=== PATIENT | male | born 1960 | race African-American/Black ===

== ENCOUNTER 2019-05-29 12:03 | Inpatient (IN) | payer OTHER ==
[2019-05-29 12:14] VITALS: BMI 23.5
[2019-05-29] MEDS ORDERED: SODIUM CHLORIDE 1,000 ML IV STA (14:32)
--- NOTE | 2019-05-29 14:42 | PDOC ---
Attending Attestation - Resident Resident Name: Deniz Mulligan - ED Attending Attestation I have performed the following: I have examined & evaluated the patient, The case was reviewed & discussed with the resident, I agree w/resident's findings & plan, Exceptions are as noted - HPI HPI: 58 yo M history ESRD (//), L AVF, HTN, CAD presents from dialysis for syncopal event during dialysis. He received approximately 10 min of dialysis. +Generalized weakness. +Chronic SOB, no recent change. Denies fever, chills, cp, cough. - Physicial Exam PE: GENERAL: Awake, alert, and fully oriented, in no acute distress HEAD: No signs of trauma EYES: PERRLA, EOMI, sclera anicteric, conjunctiva clear ENT: Auricles normal inspection, hearing grossly normal, nares patent, oropharynx clear without exudates. Moist mucosa NECK: Normal ROM, supple, no lymphadenopathy, JVD, or masses LUNGS: Breath sounds equal, clear to auscultation bilaterally. No wheezes, and no crackles HEART: Regular rate and rhythm, normal S1 and S2, no murmurs, rubs or gallops ABDOMEN: Soft, nontender, normoactive bowel sounds. No guarding, no rebound. No masses EXTREMITIES: L AVF with +thrill. Normal range of motion, no edema. No clubbing or cyanosis. No cords, erythema, or tenderness NEUROLOGICAL: Cranial nerves II through XII grossly intact. Normal speech. Motor and sensation intact SKIN: Warm, dry, normal turgor, no rashes or lesions noted. - Medical Decision Making 05/29/19 15:42 Labs d/w Dr. Torres. K is 6.1. Recommended a dose of Lokelma for now, will dialyze later today. Plan is for admission for syncope. Discharge - Discharge Information Problems reviewed: Yes Clinical Impression/Diagnosis: Syncope Qualifiers: Syncope type: unspecified Qualified Code(s): R55 - Syncope and collapse Condition: Stable - Follow up/Referral - Patient Discharge Instructions - Post Discharge Activity
--- NOTE | 2019-05-29 14:48 | PDOC ---
History of Present Illness - General Chief Complaint: Syncope/Near Syncope Stated Complaint: SYNCOPE/NEAR SYNCOPE Time Seen by Provider: 05/29/19 14:31 History Source: Patient Exam Limitations: No Limitations - History of Present Illness Initial Comments: Ash Anthony is a 58 yo m w a hx of ESRD (//) L AVF, HTN, and CAD who presents to the [facility] er from the dialysis center after a syncopal episode this morning midway throught dialysis. The dialysis session was not completed and was stopped short because the patient syncopised for around 3 to 4 minutes per dialysis staff. Patient endorses generalized fatigue. - Patient states he has been short of breath since January with no recent acute changes. The patient denies any prodromal symptoms, denies postictal confusion, denies experiencing any chest pain, nausea, or lightheadedness prior to the syncopal episode. Denies fevers, cough, sore throat, recent travel, anosmia, dysgeusia, headache, or blurry vision. PCP: Eleonora alatorre Renal: Margaret Lay (Brian avila) PSH: R nephrectomy, L AVF surgery Allergies: NKA, NKDA Social Hx:Former smoker smoked 1 pack per week for 15 years. Denies alcohol or other substance abuse. Past History - Past Medical History Allergies/Adverse Reactions: Allergies Allergy/AdvReac Type Severity Reaction Status Date / Time No Known Allergies Allergy Verified 05/29/19 12:15 Home Medications: Ambulatory Orders Aspirin 81 mg PO DAILY 05/29/19 Cholecalciferol (Vitamin D3) [Vitamin D3] 5,000 unit PO DAILY 05/29/19 Insulin (Levemir) [Levemir Vial] 20 unit SQ HS 05/29/19 Insulin Sliding Scale [Novolog Vial Sliding Scale -] 8 units SCJ TID 05/29/19 Iron,Carbonyl/Ascorbic Acid [Iron 100-Vitamin C Tablet] 1 tablet PO DAILY 05/29/19 Magnesium Oxide 400 mg PO DAILY 05/29/19 Metoprolol Succinate 50 mg PO DAILY 05/29/19 Multivitamin [Multiple Vitamins] 1 each PO DAILY 05/29/19 Nifedipine [Procardia Xl] 30 mg PO DAILY 05/29/19 Pantoprazole Sodium [Protonix] 40 mg PO DAILY 05/29/19 Prednisone 5 mg PO DAILY 05/29/19 Rosuvastatin [Crestor -] 20 mg PO HS 05/29/19 Tacrolimus 1 mg PO DAILY 05/29/19 COPD: No Diabetes: Yes Dialysis: Yes () HTN: Yes Hypercholesterolemia: Yes - Psycho Social/Smoking Cessation Hx Smoking History: Never smoked Review of Systems - Review of Systems Able to Perform ROS?: Yes Comments:: CONSTITUTIONAL: Present: Fatigue Absent: fever, no chills EYES: Absent: visual changes ENT: Absent: ear pain, no sore throat CARDIOVASCULAR: Present: Syncope Absent: chest pain, no palpitations RESPIRATORY: Present: SOB Absent: cough GI: Absent: abdominal pain, no nausea, no vomiting, no constipation, no diarrhea GENITOURINARY: Absent: dysuria, no frequency, no hematuria MUSKULOSKELETAL: Absent: back pain, no arthralgia, no myalgia SKIN: Absent: rash NEURO: Absent: headache *Physical Exam - Vital Signs Last Vital Signs Temp Pulse Resp BP Pulse Ox 98.1 F 94 H 18 143/80 100 05/29/19 12:07 05/29/19 12:07 05/29/19 12:07 05/29/19 12:07 05/29/19 12:07 - Physical Exam GENERAL: Well-appearing, well-nourished. No apparent distress. HEENT: Normocephalic, atraumatic. PERRL, EOM intact. CARDIOVASCULAR: Regular rate and rhythm. PULMONARY: No evidence of respiratory distress. Lungs clear to auscultation bilaterally. No wheezing, rales or rhonchi. ABDOMEN: Soft, non-distended, non-tender. EXTREMITIES: Normal ROM in all four extremities. L AVF. No gross deformities. SKIN: Warm, dry. No rash NEUROLOGICAL: No focal neurological deficits. ED Treatment Course - LABORATORY CBC & Chemistry Diagram: 05/30/19 06:38 05/30/19 06:38 - RADIOLOGY Radiology Studies Ordered: Category Date Time Status CHEST X-RAY PORTABLE* [RAD] Stat Radiology 05/29/19 14:32 Ordered Medical Decision Making - Medical Decision Making Ash Anthony is a 58 yo m w a hx of ESRD () L AVF, HTN, and CAD who presents to the [facility] er from the dialysis center after a syncopal episode this morning midway throught dialysis. The dialysis session was not completed and was stopped short because the patient syncopised for around 3 to 4 minutes per dialysis staff. Patient endorses generalized fatigue. - Patient states he has been short of breath since January with no recent acute changes. The patient denies any prodromal symptoms, denies postictal confusion, denies experiencing any chest pain, nausea, or lightheadedness prior to the syncopal episode. Denies fevers, cough, sore throat, recent travel, anosmia, dysgeusia, headache, or blurry vision. Vital Signs Temp Pulse Resp BP Pulse Ox 98.1 F 94 H 18 143/80 100 05/29/19 12:07 05/29/19 12:07 05/29/19 12:07 05/29/19 12:05/29/19 12:07 DDx IBNLT: Dehydration, electrolyte/metabolic disturbance, anemia, ACS, arrythmia Plan: EKG, Labs, CXR, Tele obs EKG: NS rate of 87, narrow complexes, normal axis, no hypertrophy, no ST elevations or depressions, no U waves, QTc 457, MO 154, no abnormal TWI's, no Q waves, Per ECG interpretation anterior infarc age undetermined, no hyperacute T waves. Renal Consult: Dr. Torres is covering for Dr. Robles - says the patient will be dialysed in two hours Disposition: Tele Obs Discharge - Discharge Information Problems reviewed: Yes Clinical Impression/Diagnosis: Syncope Qualifiers: Syncope type: unspecified Qualified Code(s): R55 - Syncope and collapse Condition: Stable - Admission Yes - Follow up/Referral - Patient Discharge Instructions - Post Discharge Activity
[2019-05-29 14:50] LABS: EOS % 13.2 % (0-4.5); HEMATOCRIT 26.4 % (35.4-49); HEMOGLOBIN 8.2 GM/dL (11.7-16.9); LYMPH % 6.6 % (8-40); MCH 23.3 pg (25.7-33.7); MEAN CELL VOLUME 75.2 fl (80-96); MONO % 8.3 % (3.8-10.2); NEUT % 70.9 % (42.8-82.8); PLATELET COUNT 565 K/MM3 (134-434); RBC 3.51 M/mm3 (4.00-5.60); RDW 19.2 % (11.9-15.9); WHITE BLOOD COUNT 11.8 K/mm3 (4.0-10.0)
[2019-05-29 15:28] LABS: ALBUMIN 1.9 g/dl (3.4-5.0); ALK PHOS 110 U/L (45-117); ANION GAP 8 MMOL/L (8-16); BILIRUBIN,TOTAL 0.3 mg/dL (0.2-1); BLOOD UREA NITROGEN 36.4 mg/dL (7-18); CALCIUM 8.7 mg/dL (8.5-10.1); CHLORIDE 98 mmol/L (98-107); CO2 28 mmol/L (21-32); GLUCOSE,RANDOM 182 mg/dL (74-106); MAGNESIUM 2.2 mg/dL (1.8-2.4); SGOT/AST 20 U/L (15-37); SGPT/ALT 12 U/L (13-61); SODIUM 134 mmol/L (136-145); TOT PROT 7.4 g/dl (6.4-8.2)
[2019-05-29 15:34] LABS: CREATININE 7.6 mg/dL (0.55-1.3); POTASSIUM 6.1 mmol/L (3.5-5.1)
[2019-05-29] MEDS ORDERED: SODIUM ZIRCONIUM CYCLOSILICATE (LOKELMA) 5 GM PACKET PO ONE (15:41)
--- NOTE | 2019-05-29 16:06 | CON.NEP ---
Consult Consult Specialty:: Nephrology Referred by:: ED Reason for Consultation:: ESRD on HD - History of Present Illness Chief Complaint: Syncope History of Present Illness: 58 year old gentleman with history of ESRD on HD, PCKD, Hypertension, DM presented from HD unit with syncope after starting dialysis. Seen in the ED. Denies any acute complaints. No CP, SOB, Abd pain, fever, chills, N/V/D. Does not make urine. - History Source History Provided By: Patient Limitations to Obtaining History: No Limitations - Past Medical History Cardio/Vascular: Yes: HTN Renal/: Yes: Renal Failure, Hemodialysis, Other (PCKD) Endocrine: Yes: Diabetes Mellitus - Smoking History Smoking history: Never smoked Home Medications - Allergies Allergies/Adverse Reactions: Allergies Allergy/AdvReac Type Severity Reaction Status Date / Time No Known Allergies Allergy Verified 05/29/19 12:15 Family Medical History Family History: Unremarkable Review of Systems - Review of Systems Constitutional: reports: No Symptoms Eyes: reports: No Symptoms HENT: reports: No Symptoms, Ocular Prosthesis Cardiovascular: reports: No Symptoms Respiratory: reports: No Symptoms Gastrointestinal: reports: No Symptoms Musculoskeletal: reports: No Symptoms Neurological: reports: No Symptoms Nephrology Consult - Height Height: 5 ft 7 in - Weight Weight: 68.039 kg - BMI Body Mass Index (BMI): 23.5 - Lab Results CBC,BMP: CBC, BMP 05/29/19 14:28 05/29/19 14:28 Anion Gap: Anion Gap Anion Gap 8 MMOL/L (8-16) 05/29/19 14:28 - Imaging EKG: Other (discussed with ED) - Physical Examination Vital Signs: Vital Signs Temperature 98.1 F 05/29/19 12:07 Pulse Rate 94 H 05/29/19 12:07 Respiratory Rate 18 05/29/19 12:07 Blood Pressure 143/80 05/29/19 12:07 O2 Sat by Pulse Oximetry (%) 100 05/29/19 12:07 Constitutional: Yes: Well Nourished, No Distress Eyes: Yes: Conjunctiva Clear HENT: Yes: Atraumatic Neck: Yes: Supple, Trachea Midline Cardiovascular: Yes: Regular Rate and Rhythm Respiratory: Yes: Regular, CTA Bilaterally Gastrointestinal: Yes: Normal Bowel Sounds Extremities: No: Cool, Cyanosis Edema: No Neurological: Yes: Alert, Oriented Problem List - Problems (1) ESRD (end stage renal disease) on dialysis Code(s): N18.6 - END STAGE RENAL DISEASE; Z99.2 - DEPENDENCE ON RENAL DIALYSIS (2) Polycystic kidney disease Code(s): Q61.3 - POLYCYSTIC KIDNEY, UNSPECIFIED (3) Hypertension Code(s): I10 - ESSENTIAL (PRIMARY) HYPERTENSION (4) Syncope Code(s): R55 - SYNCOPE AND COLLAPSE (5) Diabetes Code(s): E11.9 - TYPE 2 DIABETES MELLITUS WITHOUT COMPLICATIONS Assessment/Plan 58 year old gentleman with history of ESRD on HD, PCKD, Hypertension, DM presented from HD unit with syncope after starting dialysis. 1. Syncope 2. ESRD on HD 3. Hyperkalemia 4. Hypertension 5. PCKD 6. Anemia Tele work up as per primary team for HD today as inpatient as K is 6.1 Renal diet, 1.2L fluid restriction WIll give RUBY with HD for anemia, no acute need for transfusion check iron studies Thank you Tito Torres DO
--- NOTE | 2019-05-29 16:31 | HP ---
CHIEF COMPLAINT: PCP: Eleonora Yeboah ([facility]) HISTORY OF PRESENT ILLNESS: Pt is a 58 yo M with PMHx of ESRD TThSa, HTN, HLD, DM, PKD, prior kidney transplant presenting from dialysis center after syncopizing 10-15mins into the session. Pt reports feeling dizzy prior to syncopal episode, unable to give further detai ls but per chart lasting 3-4 mins. No chest pain, no SOB prior, no aura, no seizure-like activity. Pt recalls having similar experience in past x1 but could not say when. He started having dialysis in , and got kidney transplant 4 years ago, still on low dose of immunosuppressive medications. Pt last took his medications yesterday, pharmacy in [place] by mail script but pt able to assess list on line. Pt was noted to be hyperkalemic to 6.1 in ED, seen by renal,, prabhakar islas, for dialysis tonight. Recommended for tele admit and syncopal work up. ER course was notable for: (1) K-6.1, WBC-11.8, h/h-8.2/26.4 (2) EKG-vent rate 8.7, regular, QTC- 457, nl intervals, Qwaves v1-v3 (3) Recent Travel: PAST MEDICAL HISTORY: As above PAST SURGICAL HISTORY: Multiple- prior kidney transplant, AVfistula FH: Of kidney disease Social History: Smoking:Quit over 4 years smoked 2cigs/day Alcohol:Denies Drugs: Denies Allergies No Known Allergies Allergy (Verified 05/29/19 12:15) REVIEW OF SYSTEMS Except as in HPI PHYSICAL EXAMINATION Vital Signs - 24 hr 05/29/19 12:07 Temperature 98.1 F Pulse Rate 94 H Respiratory 18 Rate Blood Pressure 143/80 O2 Sat by Pulse 100 Oximetry (%) GENERAL: Awake, alert, and fully oriented, in no acute distress. HEAD: Normal with no signs of trauma. EYES: Pupils equal, round and reactive to light, extraocular movements intact, sclera anicteric, conjunctiva clear. EARS, NOSE, THROAT: Facemask on LUNGS: B/l crackles posteriorly past midlungs. No accessory muscle use. HEART: Regular rate and rhythm, normal S1 and S2 without murmur ABDOMEN: Soft, nontender, not distended, normoactive bowel sounds, no guarding, no rebound, no masses. MUSCULOSKELETAL: Normal range of motion at all joints. No bony deformities or tenderness. No CVA tenderness. UPPER EXTREMITIES: AVF LOWER EXTREMITIES: 2+ pulses, warm, well-perfused. No calf tenderness. No peripheral edema. NEUROLOGICAL: Cranial nerves II-XII intact. Normal speech. Gait not observed, no facial asymmetry, moves all extremities, 5/5 strength CBC, BMP 05/29/19 14:28 05/29/19 14:28 Laboratory Results - last 24 hr 05/29/19 05/29/19 14:28 14:28 WBC 11.8 H RBC 3.51 L Hgb 8.2 L Hct 26.4 L MCV 75.2 L MCH 23.3 L MCHC 31.0 L RDW 19.2 H Plt Count 565 H MPV 7.0 L Absolute Neuts (auto) 8.4 H Neutrophils % 70.9 Lymphocytes % 6.6 L Monocytes % 8.3 Eosinophils % 13.2 H Basophils % 1.0 Nucleated RBC % 0 Sodium 134 L Potassium 6.1 H* Chloride 98 Carbon Dioxide 28 Anion Gap 8 BUN 36.4 H Creatinine 7.6 H* Est GFR (CKD-EPI)AfAm 8.36 Est GFR (CKD-EPI)NonAf 7.21 Random Glucose 182 H Calcium 8.7 Magnesium 2.2 Total Bilirubin 0.3 AST 20 ALT 12 L Alkaline Phosphatase 110 Creatine Kinase 45 Troponin I < 0.02 Total Protein 7.4 Albumin 1.9 L Ambulatory Orders Aspirin 81 mg PO DAILY 05/29/19 Cholecalciferol (Vitamin D3) [Vitamin D3] 5,000 unit PO DAILY 05/29/19 Insulin (Levemir) [Levemir Vial] 20 unit SQ HS 05/29/19 Insulin Sliding Scale [Novolog Vial Sliding Scale -] 8 units SCJ TID 05/29/19 Iron,Carbonyl/Ascorbic Acid [Iron 100-Vitamin C Tablet] 1 tablet PO DAILY 05/29/19 Magnesium Oxide 400 mg PO DAILY 05/29/19 Metoprolol Succinate 50 mg PO DAILY 05/29/19 Multivitamin [Multiple Vitamins] 1 each PO DAILY 05/29/19 Nifedipine [Procardia Xl] 30 mg PO DAILY 05/29/19 Pantoprazole Sodium [Protonix] 40 mg PO DAILY 05/29/19 Prednisone 5 mg PO DAILY 05/29/19 Rosuvastatin [Crestor -] 20 mg PO HS 05/29/19 Tacrolimus 1 mg PO DAILY 05/29/19 Current Medications Aspirin (Asa -) 81 mg PO DAILY [facility] Cholecalciferol (Vitamin D3 -) 5,000 unit PO DAILY [facility] Heparin Sodium (Porcine) (Heparin -) 5,000 unit SQ BID [facility] Sodium Chloride (Normal Saline -) 250 mls @ 3,000 mls/hr IV PRN PRN PRN Reason: Hypotension during Dialysis Stop: 05/30/19 20:22 Insulin Detemir (Levemir Vial) 20 units SQ HS [facility] Magnesium Oxide (Mag-Ox -) 400 mg PO DAILY [facility] Multivitamins/Minerals/Vitamin C (Tab-A-Vit -) 1 tab PO DAILY [facility] Non-Formulary Medication (Iron,Carbonyl/Ascorbic Acid [Iron 100-Vitamin C Tablet]) 1 tablet PO DAILY [facility] Pantoprazole Sodium (Protonix -) 40 mg PO DAILY [facility] Prednisone (Deltasone -) 5 mg PO DAILY [facility] Rosuvastatin Calcium (Crestor -) 20 mg PO HS [facility] Tacrolimus (Prograf) 1 mg PO DAILY [facility] ASSESSMENT/PLAN: Pt is a 58 yo M with PMHx of ESRD TThSa, HTN, HLD, DM, PKD, prior kidney transplant presenting from dialysis center after syncopizing 10-15mins into the session. #Syncope During dialysis, possible due to hypotension R/O cardiogenic Pt received IVF in ED Pt with hyperkelemia, Q waves on EKG, no prior EKG to compare orthostatic BP Will do ECHO Carotid US Tele monitoring Physical therapy #Hyperkalemia In setting of incomplet/missed dialysis EKG without evidence of hyperkalemia Lokelma given For dialysis today Seen by renal #ESRD TThSa S/p IVF Interrrupted session today due to syncope, will still be dialyzed today per renal #Anemia Iron studies Pt to get EPO, no need for transfusion at this time Pt on home iron tablets per medrec #HTN Pt on home nifedipine and metoprolol Will hold for now #HLD Crestor 20mg at home per pt May resume #DM Pt reports using levemir 20u at night short acting insulin 8u tid BGM ACHS #PKD Family hx of kidney disease Now s/p kidney transplant 4years ago Started dialysis Still on immunosuppressive medications- prednisone 5mg, Tacrolimus 1mg #FEN No standing fluids For dialysis Renal diet #PPx Cont protonix #Heparin sc 5000 bid #Dispo Tele for hypokalemia monitoring Visit type - Emergency Visit Emergency Visit: Yes ED Registration Date: 05/29/19 Care time: The patient presented to the Emergency Department on the above date and was hospitalized for further evaluation of their emergent condition. - New Patient This patient is new to me today: Yes Date on this admission: 05/29/19 - Critical Care Critical Care patient: No ATTENDING PHYSICIAN STATEMENT I saw and evaluated the patient. I reviewed the resident's note and discussed the case with the resident. I agree with the resident's findings and plan as documented. SUBJECTIVE: OBJECTIVE: ASSESSMENT AND PLAN:
[2019-05-29] MEDS ORDERED: predniSONE 5 MG TABLET (UD) PO SCH (18:15)
--- NOTE | 2019-05-29 19:09 | PN ---
Teaching Attending Note Name of Resident: Maki Jaquez ATTENDING PHYSICIAN STATEMENT I saw and evaluated the patient. I reviewed the resident's note and discussed the case with the resident. I agree with the resident's findings and plan as documented. SUBJECTIVE: reports passing out during HD. [place] lightheaded prior to syncope but denies CP/palpitations/Cough/SOB/fevers/chills. OBJECTIVE: Afebrile, Hemodynamically Stable Last Vital Signs Temp Pulse Resp BP Pulse Ox 98.1 F 94 H 18 143/80 100 05/29/19 12:07 05/29/19 12:07 05/29/19 12:07 05/29/19 12:07 05/29/19 12:07 HEENT - Atraumatic, Normocephalic. Heart - S1, S2, RRR Lungs - clear to auscultation Abdomen - Transplant kidney in vivo. Abdomen Non-tender. Extremities - no edema, no calf tenderness Neuro - AAO x 3. Tone/Power normal all extremities. Laboratory Results - last 24 hr 05/29/19 05/29/19 05/29/19 14:28 14:28 17:50 WBC 11.8 H RBC 3.51 L Hgb 8.2 L Hct 26.4 L MCV 75.2 L MCH 23.3 L MCHC 31.0 L RDW 19.2 H Plt Count 565 H MPV 7.0 L Absolute Neuts (auto) 8.4 H Neutrophils % 70.9 Lymphocytes % 6.6 L Monocytes % 8.3 Eosinophils % 13.2 H Basophils % 1.0 Nucleated RBC % 0 Sodium 134 L Potassium 6.1 H* Chloride 98 Carbon Dioxide 28 Anion Gap 8 BUN 36.4 H Creatinine 7.6 H* Est GFR (CKD-EPI)AfAm 8.36 Est GFR (CKD-EPI)NonAf 7.21 Random Glucose 182 H Calcium 8.7 Magnesium 2.2 Total Bilirubin 0.3 AST 20 ALT 12 L Alkaline Phosphatase 110 Creatine Kinase 45 41 Troponin I < 0.02 < 0.02 Total Protein 7.4 Albumin 1.9 L Current Medications Generic Name Dose Route Start Last Admin Trade Name Freq PRN Reason Stop Dose Admin Aspirin 81 mg 05/29/19 18:15 Asa - PO DAILY [facility] Cholecalciferol 5,000 unit 05/30/19 10:00 Vitamin D3 - PO DAILY [facility] Epoetin Nii 20,000 unit 05/29/19 15:58 Procrit - IVPUSH 05/29/19 15:59 ONCE ONE Sodium Chloride 250 mls @ 3,000 mls/hr 05/29/19 15:58 Normal Saline - IV 05/30/19 15:58 PRN PRN Hypotension during Dialysis Insulin Detemir 20 units 05/29/19 22:00 Levemir Vial SQ HS [facility] Magnesium Oxide 400 mg 05/30/19 10:00 Mag-Ox - PO DAILY [facility] Multivitamins/Minerals/Vitamin C 1 tab 05/30/19 10:00 Tab-A-Vit - PO DAILY [facility] Non-Formulary Medication 1 tablet 05/30/19 10:00 Iron,Carbonyl/Ascorbic Acid [Iron 100-Vitamin C Tablet] PO DAILY [facility] Pantoprazole Sodium 40 mg 05/30/19 10:00 Protonix - PO DAILY [facility] Prednisone 5 mg 05/29/19 18:15 Deltasone - PO DAILY [facility] Rosuvastatin Calcium 20 mg 05/29/19 22:00 Crestor - PO HS [facility] Tacrolimus 1 mg 05/29/19 18:15 Prograf PO DAILY [facility] Home Medications Medication Instructions Recorded Aspirin 81 mg PO DAILY 05/29/19 Cholecalciferol (Vitamin D3) 5,000 unit PO DAILY 05/29/19 [Vitamin D3] Insulin (Levemir) [Levemir Vial] 20 unit SQ HS 05/29/19 Insulin Sliding Scale [Novolog 8 units SCJ TID 05/29/19 Vial Sliding Scale -] Iron,Carbonyl/Ascorbic Acid [Iron 1 tablet PO DAILY 05/29/19 100-Vitamin C Tablet] Magnesium Oxide 400 mg PO DAILY 05/29/19 Metoprolol Succinate 50 mg PO DAILY 05/29/19 Multivitamin [Multiple Vitamins] 1 each PO DAILY 05/29/19 Nifedipine [Procardia Xl] 30 mg PO DAILY 05/29/19 Pantoprazole Sodium [Protonix] 40 mg PO DAILY 05/29/19 Prednisone 5 mg PO DAILY 05/29/19 Rosuvastatin [Crestor -] 20 mg PO HS 05/29/19 Tacrolimus 1 mg PO DAILY 05/29/19 ASSESSMENT AND PLAN: 58 year old male ESRD on HD sec to PKD s/p failed Renal transplant, HTN, HLD, DM 2, presents from HD center after syncopal episode during HD, noted to be hyperkalemic in ED, admitted for syncope work-up and HD. 1. Syncope, likely sec to hypotension during HD Orthostatic vitals. Echo, Carotid Duplex requested. PT eval. 2. ESRD on HD (TTS) with Hyperkalemia Nephrology consult - for HD today ECG - no acute changes. s/p Renal transplant - on Tacrolimus and Prednisone. 3. Microcytic Anemia - likely multifactorial. Procrit for Anemia as per Nephrology Iron studies requested. 4. DM 2 - On Levemir, Novolog as per sliding scale. 5. HTN - on Metoprolol, Nifedipine 6. HLD - continue Crestor. DVT Px - Heparin SQ
[2019-05-29] MEDS ORDERED: SODIUM CHLORIDE 250 ML IV PRN (20:23)
[2019-05-29] MEDS ORDERED: EPOETIN ALFA 20,000 UNIT/1 ML VIAL IVPUSH ONE (20:30)
[2019-05-29] MEDS ORDERED: HEPARIN NA (PORCINE) 5,000 UNITS/ML 1ML VIAL SQ SCH (22:00)
[2019-05-29] MEDS ORDERED: INSULIN (LEVEMIR) 100 UNITS/ML UNITS SQ SCH (22:00)
[2019-05-29] MEDS ORDERED: ROSUVASTATIN CA 20 MG TABLET (FP) PO SCH (22:00)
[2019-05-29] MEDS ORDERED: HEPARIN NA (PORCINE) 5,000 UNITS/ML 1ML VIAL ONE (23:54)
[2019-05-29] MEDS ORDERED: ASPIRIN 81 MG CHEWABLE TABLETS ONE (23:55)
[2019-05-30] MEDS: predniSONE 5 MG TABLET (UD) PO SCH ×2 (00:01→10:30)
[2019-05-30] MEDS: ASPIRIN 81 MG CHEWABLE TABLETS PO SCH ×2 (00:01→10:30)
[2019-05-30] MEDS: INSULIN SLIDING SCALE (NOVOLOG) 1 VIAL SQ SCH ×2 (01:18→07:35)
[2019-05-30 08:34] LABS: BASO % 1.5 % (0-2.0); EOS % 7.4 % (0-4.5); HEMATOCRIT 24.6 % (35.4-49); HEMOGLOBIN 7.5 GM/dL (11.7-16.9); LYMPH % 6.2 % (8-40); MCH 22.9 pg (25.7-33.7); MCHC 30.3 g/dl (32.0-35.9); MEAN CELL VOLUME 75.5 fl (80-96); MEAN PLT VOLUME 7.3 fl (7.5-11.1); MONO % 10.2 % (3.8-10.2); NEUT % 74.7 % (42.8-82.8); PLATELET COUNT 530 K/MM3 (134-434); RBC 3.26 M/mm3 (4.00-5.60); RDW 19.6 % (11.9-15.9); WHITE BLOOD COUNT 11.1 K/mm3 (4.0-10.0)
[2019-05-30 08:45] LABS: INR 1.27 (0.83-1.09)
[2019-05-30 09:33] LABS: CHOLESTEROL 150 mg/dL (50-200); HDL CHOLESTEROL 23 mg/dL (40-60); LDL CHOLESTEROL (ONLY SJRH) 105 mg/dL (5-100); TRIGLYCERIDES 134 mg/dL (0-150)
[2019-05-30 09:44] LABS: ALBUMIN 1.6 g/dl (3.4-5.0); BILIRUBIN,TOTAL 0.8 mg/dL (0.2-1); BLOOD UREA NITROGEN 23.4 mg/dL (7-18); CALCIUM 8.5 mg/dL (8.5-10.1); CREATININE 5.6 mg/dL (0.55-1.3); MAGNESIUM 1.9 mg/dL (1.8-2.4); PHOSPHOROUS 2.6 mg/dL (2.5-4.9); POTASSIUM 5.4 mmol/L (3.5-5.1); TOT PROT 6.8 g/dl (6.4-8.2)
[2019-05-30] MEDS ORDERED: CHOLECALCIFEROL (VIT D3) 1,000 UNIT (25 MCG) TABLET PO SCH (10:00)
[2019-05-30] MEDS ORDERED: MULTIVITAMINS (DAILY MVI) TABLET (FP) PO SCH (10:00)
[2019-05-30] MEDS ORDERED: MAGNESIUM OXIDE 400 MG TABLET (FP) PO SCH (10:00)
[2019-05-30] MEDS ORDERED: PANTOPRAZOLE 40 MG TABLET PO SCH (10:00)
[2019-05-30] MEDS: TACROLIMUS ANHYDROUS 1 MG CAPSULE PO SCH ×2 (10:05→14:08)
[2019-05-30] MEDS ORDERED: PANTOPRAZOLE 40 MG TABLET ONE (10:14)
[2019-05-30] MEDS ORDERED: ASPIRIN 81 MG CHEWABLE TABLETS ONE (10:14)
[2019-05-30] MEDS ORDERED: MAGNESIUM OXIDE 400 MG TABLET (FP) ONE (10:14)
[2019-05-30] MEDS ORDERED: SODIUM ZIRCONIUM CYCLOSILICATE (LOKELMA) 5 GM PACKET PO SCH (11:45)
[2019-05-30 12:45] VITALS: BP 144/86; PULSE 91; TEMP 98
--- NOTE | 2019-05-30 13:25 | DS ---
Physical Exam: SUBJECTIVE: Patient seen and examined. No dizziness, no chest pain, no SOB. OBJECTIVE: Vital Signs Period Temp Pulse Resp BP Sys/Figueroa Pulse Ox Last 24 Hr 98.0 F-99.0 F 81-100 16-18 144-160/76-92 93-95 PHYSICAL EXAM GENERAL: The patient is awake, alert, and fully oriented, in no acute distress. ENT:Face mask LUNGS: Reduced crackles HEART: Regular rate and rhythm, S1, S2 without murmur ABDOMEN: Soft, nontender, nondistended, normoactive bowel sounds, no guarding, no rebound EXTREMITIES: 2+ pulses, warm, well-perfused, no edema. NEUROLOGICAL: Cranial nerves II through XII grossly intact. Normal speech, gait not observed. PSYCH: Normal mood, normal affect. LABS Laboratory Results - last 24 hr 05/29/19 05/29/19 05/29/19 14:28 14:28 17:50 WBC 11.8 H RBC 3.51 L Hgb 8.2 L Hct 26.4 L MCV 75.2 L MCH 23.3 L MCHC 31.0 L RDW 19.2 H Plt Count 565 H MPV 7.0 L Absolute Neuts (auto) 8.4 H Neutrophils % 70.9 Lymphocytes % 6.6 L Monocytes % 8.3 Eosinophils % 13.2 H Basophils % 1.0 Nucleated RBC % 0 PT with INR INR PTT (Actin FS) Sodium 134 L Potassium 6.1 H* Chloride 98 Carbon Dioxide 28 Anion Gap 8 BUN 36.4 H Creatinine 7.6 H* Est GFR (CKD-EPI)AfAm 8.36 Est GFR (CKD-EPI)NonAf 7.21 POC Glucometer Random Glucose 182 H Hemoglobin A1c % Calcium 8.7 Phosphorus Magnesium 2.2 Iron TIBC Iron Saturation Unsaturated IBC Ferritin Total Bilirubin 0.3 AST 20 ALT 12 L Alkaline Phosphatase 110 Creatine Kinase 45 41 Troponin I < 0.02 < 0.02 Total Protein 7.4 Albumin 1.9 L Triglycerides Cholesterol Total LDL Cholesterol HDL Cholesterol TSH 05/30/19 05/30/19 05/30/19 01:08 06:38 06:38 WBC 11.1 H RBC 3.26 L Hgb 7.5 L Hct 24.6 L MCV 75.5 L MCH 22.9 L MCHC 30.3 L RDW 19.6 H Plt Count 530 H MPV 7.3 L Absolute Neuts (auto) 8.3 H Neutrophils % 74.7 Lymphocytes % 6.2 L Monocytes % 10.2 Eosinophils % 7.4 H Basophils % 1.5 Nucleated RBC % 0 PT with INR INR PTT (Actin FS) Sodium 137 Potassium 5.4 H Chloride 98 Carbon Dioxide 28 Anion Gap 10 BUN 23.4 H Creatinine 5.6 H Est GFR (CKD-EPI)AfAm 12.09 Est GFR (CKD-EPI)NonAf 10.44 POC Glucometer 126 Random Glucose 116 H Hemoglobin A1c % Calcium 8.5 Phosphorus 2.6 Magnesium 1.9 Iron 17 L TIBC 118 L Iron Saturation 14 L Unsaturated IBC 101 L Ferritin 3141.4 H Total Bilirubin 0.8 AST 13 L ALT 9 L Alkaline Phosphatase 100 Creatine Kinase Troponin I Total Protein 6.8 Albumin 1.6 L Triglycerides Cholesterol Total LDL Cholesterol HDL Cholesterol TSH 2.04 05/30/19 05/30/19 05/30/19 06:38 06:38 06:38 WBC RBC Hgb Hct MCV MCH MCHC RDW Plt Count MPV Absolute Neuts (auto) Neutrophils % Lymphocytes % Monocytes % Eosinophils % Basophils % Nucleated RBC % PT with INR 15.00 H INR 1.27 H PTT (Actin FS) 36.0 Sodium Potassium Chloride Carbon Dioxide Anion Gap BUN Creatinine Est GFR (CKD-EPI)AfAm Est GFR (CKD-EPI)NonAf POC Glucometer Random Glucose Hemoglobin A1c % 8.2 H Calcium Phosphorus Magnesium Iron TIBC Iron Saturation Unsaturated IBC Ferritin Total Bilirubin AST ALT Alkaline Phosphatase Creatine Kinase Troponin I < 0.02 Total Protein Albumin Triglycerides 134 Cholesterol 150 Total LDL Cholesterol 105 H HDL Cholesterol 23 L TSH 05/30/19 07:30 WBC RBC Hgb Hct MCV MCH MCHC RDW Plt Count MPV Absolute Neuts (auto) Neutrophils % Lymphocytes % Monocytes % Eosinophils % Basophils % Nucleated RBC % PT with INR INR PTT (Actin FS) Sodium Potassium Chloride Carbon Dioxide Anion Gap BUN Creatinine Est GFR (CKD-EPI)AfAm Est GFR (CKD-EPI)NonAf POC Glucometer 126 Random Glucose Hemoglobin A1c % Calcium Phosphorus Magnesium Iron TIBC Iron Saturation Unsaturated IBC Ferritin Total Bilirubin AST ALT Alkaline Phosphatase Creatine Kinase Troponin I Total Protein Albumin Triglycerides Cholesterol Total LDL Cholesterol HDL Cholesterol TSH Carotid Duplex negative CXR-Mild bilateral increased lung markings without evidence of acute lung changes HOSPITAL COURSE: Date of Admission:05/29/19 Date of Discharge: 05/30/19 Pt is a 58 yo M with PMHx of ESRD TThSa, HTN, HLD, DM, PKD, prior kidney transplant presenting from dialysis center after syncopizing 10-15mins into the session. Pt was admitted for Syncope, likely sec to hypotension during HD, noted to have hyperkalemia that was medically treated and he received dialysis. Pt was continued on prednisone and tacrolimus. Pt received epoetin for anemia to continue outpatient iron therapy. He continued all his other medications and will follow up as an outpatient with nephrology and cardiology for possible Echocardiography. Pt was medically stable prior to discharge home Minutes to complete discharge: 38 Discharge Summary Problems reviewed: Yes Reason For Visit: SYNCOPE/NEAR SYNCOPE Current Active Problems Diabetes (Acute) ESRD (end stage renal disease) on dialysis (Acute) Hypertension (Acute) Polycystic kidney disease (Acute) Syncope (Acute) Condition: Stable - Instructions Diet, Activity, Other Instructions: You came in after fainting during dialysis You still got dialyzed later in the day after receiving some fluids Your potassium was high and was treated You were also noted to have some anemia that is being treated Ultrasound of your neck vessels did not show concern for blockage Follow up with your primary care doctor within a week (We [facility] cannot [facility] your doctor). Follow up with your kidney doctor within 2 weeks Follow up with a milk pickup driver for possible echocardiography (ultrasound of your heart) Continue your medications as prescribed If you think your symptoms are not improving with worsening shortness of breath, recurrent fainting spells , seizure-like activity or chest pain please return to the nearest emergency room Referrals: [facility] [place] [Provider Group] Gianfranco Gomez MD [Staff Physician] - ON STAFF,NOT [Primary Care Provider] - Estephania Robles MD [Staff Physician] - 1 Week (For your anemai and dialysis) Disposition: HOME - Home Medications Comprehensive Discharge Medication List: Ambulatory Orders Aspirin 81 mg PO DAILY 05/29/19 Cholecalciferol (Vitamin D3) [Vitamin D3] 5,000 unit PO DAILY 05/29/19 Insulin (Levemir) [Levemir Vial] 20 unit SQ HS 05/29/19 Insulin Sliding Scale [Novolog Vial Sliding Scale -] 8 units SCJ TID 05/29/19 Iron,Carbonyl/Ascorbic Acid [Iron 100-Vitamin C Tablet] 1 tablet PO DAILY 05/29/19 Magnesium Oxide 400 mg PO DAILY 05/29/19 Metoprolol Succinate 50 mg PO DAILY 05/29/19 Multivitamin [Multiple Vitamins] 1 each PO DAILY 05/29/19 Nifedipine [Procardia Xl] 30 mg PO DAILY 05/29/19 Pantoprazole Sodium [Protonix] 40 mg PO DAILY 05/29/19 Prednisone 5 mg PO DAILY 05/29/19 Rosuvastatin [Crestor -] 20 mg PO HS 05/29/19 Tacrolimus 1 mg PO DAILY 05/29/19 This patient is new to me today: No Emergency Visit: Yes ED Registration Date: 05/29/19 Care time: The patient presented to the Emergency Department on the above date and was hospitalized for further evaluation of their emergent condition. Critical Care patient: No - Discharge Referral Referred to [facility] No ATTENDING PHYSICIAN STATEMENT I saw and evaluated the patient. I reviewed the resident's note and discussed the case with the resident. I agree with the resident's findings and plan as documented. SUBJECTIVE: OBJECTIVE: ASSESSMENT AND PLAN:
--- NOTE | 2019-05-30 16:04 | PN ---
Teaching Attending Note Name of Resident: Maki Jaquez ATTENDING PHYSICIAN STATEMENT I saw and evaluated the patient. I reviewed the resident's note and discussed the case with the resident. I agree with the resident's findings and plan as documented. SUBJECTIVE: Received HD yesterday - no further syncopal or lightheaded episodes. OBJECTIVE: Afebrile, Hemodynamically Stable Last Vital Signs Temp Pulse Resp BP Pulse Ox 98.0 F 91 H 18 144/86 95 05/30/19 12:43 05/30/19 12:43 05/30/19 12:43 05/30/19 12:43 05/30/19 12:43 Heart - S1, S2, RRR Lungs - clear to auscultation Abdomen - Transplant kidney in vivo. Abdomen Non-tender. Extremities - no edema, no calf tenderness Neuro - AAO x 3. Tone/Power normal all extremities. Laboratory Results - last 24 hr 05/29/19 05/30/19 05/30/19 17:50 01:08 06:38 WBC RBC Hgb Hct MCV MCH MCHC RDW Plt Count MPV Absolute Neuts (auto) Neutrophils % Lymphocytes % Monocytes % Eosinophils % Basophils % Nucleated RBC % PT with INR INR PTT (Actin FS) Sodium 137 Potassium 5.4 H Chloride 98 Carbon Dioxide 28 Anion Gap 10 BUN 23.4 H Creatinine 5.6 H Est GFR (CKD-EPI)AfAm 12.09 Est GFR (CKD-EPI)NonAf 10.44 POC Glucometer 126 Random Glucose 116 H Hemoglobin A1c % Calcium 8.5 Phosphorus 2.6 Magnesium 1.9 Iron 17 L TIBC 118 L Iron Saturation 14 L Unsaturated IBC 101 L Ferritin 3141.4 H Total Bilirubin 0.8 AST 13 L ALT 9 L Alkaline Phosphatase 100 Creatine Kinase 41 Troponin I < 0.02 Total Protein 6.8 Albumin 1.6 L Triglycerides Cholesterol Total LDL Cholesterol HDL Cholesterol TSH 2.04 05/30/19 05/30/19 05/30/19 06:38 06:38 06:38 WBC 11.1 H RBC 3.26 L Hgb 7.5 L Hct 24.6 L MCV 75.5 L MCH 22.9 L MCHC 30.3 L RDW 19.6 H Plt Count 530 H MPV 7.3 L Absolute Neuts (auto) 8.3 H Neutrophils % 74.7 Lymphocytes % 6.2 L Monocytes % 10.2 Eosinophils % 7.4 H Basophils % 1.5 Nucleated RBC % 0 PT with INR 15.00 H INR 1.27 H PTT (Actin FS) 36.0 Sodium Potassium Chloride Carbon Dioxide Anion Gap BUN Creatinine Est GFR (CKD-EPI)AfAm Est GFR (CKD-EPI)NonAf POC Glucometer Random Glucose Hemoglobin A1c % Calcium Phosphorus Magnesium Iron TIBC Iron Saturation Unsaturated IBC Ferritin Total Bilirubin AST ALT Alkaline Phosphatase Creatine Kinase Troponin I < 0.02 Total Protein Albumin Triglycerides 134 Cholesterol 150 Total LDL Cholesterol 105 H HDL Cholesterol 23 L TSH 05/30/19 05/30/19 05/30/19 06:38 07:30 14:31 WBC RBC Hgb Hct MCV MCH MCHC RDW Plt Count MPV Absolute Neuts (auto) Neutrophils % Lymphocytes % Monocytes % Eosinophils % Basophils % Nucleated RBC % PT with INR INR PTT (Actin FS) Sodium Potassium Chloride Carbon Dioxide Anion Gap BUN Creatinine Est GFR (CKD-EPI)AfAm Est GFR (CKD-EPI)NonAf POC Glucometer 126 176 Random Glucose Hemoglobin A1c % 8.2 H Calcium Phosphorus Magnesium Iron TIBC Iron Saturation Unsaturated IBC Ferritin Total Bilirubin AST ALT Alkaline Phosphatase Creatine Kinase Troponin I Total Protein Albumin Triglycerides Cholesterol Total LDL Cholesterol HDL Cholesterol TSH Discharge Medications Medication Instructions Recorded Aspirin 81 mg PO DAILY 05/29/19 Cholecalciferol (Vitamin D3) 5,000 unit PO DAILY 05/29/19 [Vitamin D3] Insulin (Levemir) [Levemir Vial] 20 unit SQ HS 05/29/19 Insulin Sliding Scale [Novolog 8 units SCJ TID 05/29/19 Vial Sliding Scale -] Iron,Carbonyl/Ascorbic Acid [Iron 1 tablet PO DAILY 05/29/19 100-Vitamin C Tablet] Magnesium Oxide 400 mg PO DAILY 05/29/19 Metoprolol Succinate 50 mg PO DAILY 05/29/19 Multivitamin [Multiple Vitamins] 1 each PO DAILY 05/29/19 Nifedipine [Procardia Xl] 30 mg PO DAILY 05/29/19 Pantoprazole Sodium [Protonix] 40 mg PO DAILY 05/29/19 Prednisone 5 mg PO DAILY 05/29/19 Rosuvastatin [Crestor -] 20 mg PO HS 05/29/19 Tacrolimus 1 mg PO DAILY 05/29/19 ASSESSMENT AND PLAN: 58 year old male ESRD on HD sec to PKD s/p failed Renal transplant, HTN, HLD, DM 2, presents from HD center after syncopal episode during HD, noted to be hyperkalemic in ED, admitted for syncope work-up and HD. 1. Syncope, likely sec to hypotension during HD Carotid Duplex negative Echo not available on weekends. Finished HD session as in-patient at [facility] - now medically stable for discharge. Further work-up as out-patient. 2. ESRD on HD (TTS) with Hyperkalemia Nephrology consulted s/p HD yesterday ECG - no acute changes. s/p Renal transplant - on Tacrolimus and Prednisone. 3. Microcytic Anemia - likely multifactorial. Procrit for Anemia as per Nephrology Iron studies resulted - further management as per Nephrology. 4. Hyperkalemia - discussed with Dr. Torres - recommends a dose of Lokelma prior to discharge. 5. DM 2 - On Levemir, Novolog as per sliding scale. 6. HTN - on Metoprolol, Nifedipine 7. HLD - continue Crestor. Medically stable and optimized for discharge. nephrology follow up for ongoing scheduled HD and Cardiology follow up for Echo as pout-patient.
[2019-05-30] MEDS ORDERED: ROSUVASTATIN CA 10 MG TABLET (FP) PO SCH (22:00)
--- NOTE | 2019-05-31 14:45 | EKG ---
Test Reason : Blood Pressure : / mmHG Vent. Rate : 087 BPM Atrial Rate : 087 BPM P-R Int : 154 ms QRS Dur : 072 ms QT Int : 380 ms P-R-T Axes : 056 -17 030 degrees QTc Int : 457 ms NORMAL SINUS RHYTHM POOR R WAVE PROGRESSION ABNORMAL ECG NO PREVIOUS ECGS AVAILABLE Confirmed by SUSANNAH STEWART MD ([id number]) on 05/31/2019 2:45:49 PM Referred By: Confirmed By:SUSANNAH STEWART MD
[2019-06-01 03:07] LABS: HEP B CORE AB, TOT Negative (Negative)
== END 2019-05-30 15:36 | disposition home or self-care (01) | DRG 207 ==
LOC: JER 12:03 → JERBED 16:11
PROC: 5A1D70Z Performance of Urinary Filtration, Intermittent, Less than 6 Hours Per Day (ICD-10-PCS; principal; 2019-05-29)
DX: I95.9 Hypotension, unspecified (principal); E78.5 Hyperlipidemia, unspecified; E87.5 Hyperkalemia; D50.9 Iron deficiency anemia, unspecified; Q61.3 Polycystic kidney, unspecified; I12.0 Hypertensive chronic kidney disease with stage 5 chronic kidney disease or end stage renal disease; E11.22 Type 2 diabetes mellitus with diabetic chronic kidney disease; N18.6 End stage renal disease; Z99.2 Dependence on renal dialysis; R55 Syncope and collapse
CPT/HCPCS: 36415; 71045-TC-FY; 80053; 80061; 82550; 82728; 82962; 83036; 83540; 83550; 83721; 83735; 84100; 84443; 84466; 84484; 85025; 85610; 85730; 86704; 86706; 86707; 86708; 86709; 86803; 87340; 93005; 93010; 93880-TC; 99285-25; J0885; J1644; J7030